=== PATIENT | female | born 1980 | race Caucasian/White ===

== ENCOUNTER 2017-12-29 22:01 | Emergency (ER) | payer OTHER, MEDICAID, SELFPAY ==
[2017-12-29 22:26] VITALS: BP 150/84; PULSE 60; RESP 15; TEMP 36.7; O2SAT 100; BMI 29.9
[2017-12-29 23:00] VITALS: BP 144/86; PULSE 64; RESP 14; O2SAT 100
--- NOTE | 2017-12-29 23:40 | ED_ITS ---
HPI - Arrhythmia/Palpitations General Chief Complaint: Arrhythmia/Palpitations Stated Complaint: STATES IRREGULAR HEART BEATS Time Seen by Provider: 12/29/17 22:07 Source: patient Mode of arrival: ambulatory Limitations: no limitations History of Present Illness HPI narrative: Otherwise healthy 37-year-old female here for evaluation of palpitations. Patient states that she has had palpitations off and on for some time now. She states she has seen her primary doctor and also a assistant farm operations manager and has worn a 24 hr Holter monitor. She states that her palpitations have never been recorded on any of these visits. She states that she was told that she had ?PVCs ?by the assistant farm operations manager. She states that her current symptoms are which she has had in the past. She describes them as her heart skipping beats. She denies any chest pain. She states that they are ?annoying? she states she is not short of breath with them. Has gotten lightheaded with them. She states that when these symptoms 1st started over a year ago it was because she was having ?fainting spells ?not having any of these spells now. Review of Systems Constitutional Denies chills, Denies fever(s), Denies lethargy and Denies weakness Cardiovascular Denies rapid heart rate, Reports irregular heart rhythm, Denies leg edema, Reports palpitations, Denies dyspnea and Denies dyspnea on exertion Respiratory Denies cough, Denies dyspnea, Denies dyspnea on exertion and Denies wheezing Gastrointestinal Gastrointestinal: Denies abdominal pain, Denies change in bowel habits, Denies diarrhea, Denies nausea and Denies vomiting Musculoskeletal Denies back pain, Denies muscle weakness, Denies numbness and Denies tingling Integumentary/Breasts Denies pruritus, Denies erythema, Denies rash and Denies wounds Neurologic Denies numbness, Denies tingling and Denies weakness Endocrine Reports palpitations Hematologic/Lymphatic Denies easy bruising Allergic/Immunologic Denies wheezing [facility] Social History Smoking Status: Never smoker Exam Initial Vital Signs Initial Vital Signs: Vital Signs Temperature 98.1 F 12/29/17 22:26 Pulse Rate 60 12/29/17 22:26 Respiratory Rate 15 12/29/17 22:26 Blood Pressure 150/84 H 12/29/17 22:26 Pulse Oximetry 100 12/29/17 22:26 Chest Chest: normal inspection of the chest Resp Effort & Inspection: normal respiratory effort, able to speak in complete sentences, no respiratory distress and no use of accessory muscles Auscultation: clear to auscultation bilaterally, no rales, no rhonchi and no wheezes Cardio Rate: bradycardic Rhythm: regular rhythm Heart Sounds: no click, no gallops, no murmurs and no rubs Pulses: normal peripheral pulses GI Inspection: non-distended Palpation: soft, no hepatosplenomegaly, No guarding, No pulsatile mass and No tender Auscultation: normal bowel sounds Skin General: no rashes or lesions noted, No jaundice and No petechiae Neuro General: alert, oriented x3, gait normal and no focal motor deficits Speech: speech normal Extrem General: full ROM, no clubbing, cyanosis or edema, no pedal edema and no calf tenderness Course Orders Ordered: ED Orders 12/29/17 22:07 EKG-12 Lead Stat Vital Signs - 8 hr 12/29/17 22:26 12/29/17 23:00 12/29/17 23:46 Temperature 98.1 F Pulse Rate 60 64 53 L Respiratory Rate 15 14 14 Blood Pressure 150/84 H 149/94 H Blood Pressure [Right Arm] 144/86 H Pulse Oximetry 100 100 100 MDM - Arrhythmia/Palpitations ECG Data Attestation: I personally reviewed and interpreted this ECG as follows: Prior ECG tracings: not available for review Interpretation: Sinus bradycardia Ventricular rate of 48 Normal axis Normal intervals Normal QTC Normal QRS No ST T wave changes MDM Narrative Medical decision making narrative: During her time here in the emergency department patient has been bradycardic in the 50s. Her heart rate does increase with exertion. She states that she has been told that her heart rate is always slow. We were able to catch her symptoms while she was on the monitor. She did have bigeminy. She was not having chest pain not having shortness of breath and not lightheaded during these symptoms here in the emergency department. She is otherwise healthy. We did discuss that bigeminy could be controlled with medications however would be a daily medication and her symptoms are sporadic. She was given a copy of her rhythm strip which showed the bigeminy. She was instructed that she needed to call her assistant farm operations manager office tomorrow to tell them about her symptoms to set up an appointment to discuss medications. She was given return precautions. She expressed understanding and agreement with plan. Discharge Plan Departure Patient Disposition: Home, Self-Care Clinical Impression: Ventricular bigeminy Discharge Date/Time: 12/29/17 23:46 Interventions: ED Discharge Assessment Last Done: 12/29/17 23:46 Instructions: Premature Ventricular Beats Activity Restrictions/Additional Instructions: Recommend that you contact your assistant farm operations manager and primary care doctor tomorrow for a follow-up and to discuss further workup and treatment. Return to the emergency department for any new symptoms, passing out, chest pain, or any other concerning symptoms.
[2017-12-29 23:46] VITALS: BP 149/94; PULSE 53; RESP 14; O2SAT 100
== END 2017-12-29 23:46 | disposition home or self-care (01) ==
PROVIDERS: Emergency Provider Emergency Medicine; PCP Family Medicine
DX: I49.9 Cardiac arrhythmia, unspecified (principal)
CPT/HCPCS: 93005; 99282; 99283

== ENCOUNTER 2022-11-12 13:00 | Emergency (ER) | payer OTHER, SELFPAY ==
[2022-11-12 13:30] VITALS: BP 144/81; PULSE 64; RESP 17; TEMP 37.2; O2SAT 99; BMI 32.0
[2022-11-12 14:15] LABS: Add Manual Diff / Slide Review NO; Basophils Absolute Auto 100 /uL (0-100); Basophils Percent Auto 1.2 % (0-2); Eosinophils Absolute Auto 300 /uL (0-450); Eosinophils Percent Auto 4.6 % (2-4); Hematocrit 39.4 % (36-46); Lymphocytes Absolute Auto 1600 /uL (1100-4500); Lymphocytes Percent Auto 26.8 % (25-40); Mean Corpuscular Hemoglobin 25.9 PG (26-34); Mean Corpuscular Volume 78.5 fL (80-100); Monocytes Absolute Auto 500 /uL (0-900); Monocytes Percent Auto 8.2 % (3-14); Neutrophils Absolute Auto 3500 /uL (1500-7000); Neutrophils Percent Auto 59.2 % (50-75); Platelet Count 171 X10^3/uL (150-400); Red Blood Cell Count 5.02 X10^6/uL (4.0-5.2); Red Cell Distribution Width 13.6 % (11.6-14.8); White Blood Cell Count 5.9 X10^3/uL (4.5-11.0)
[2022-11-12 14:20] LABS: Alanine Aminotransferase 29 IU/L (<35); Albumin 4.1 g/dL (3.5-5.0); Albumin Globulin Ratio 1.3 (1.0-2.8); Alkaline Phosphatase 52 U/L (38-126); Aspartate Aminotransferase 24 IU/L (14-36); BUN Creatinine Ratio 12.1 (6-22); Bilirubin Total 0.3 mg/dL (0.2-1.3); Blood Urea Nitrogen 8 mg/dL (7-17); Calcium 8.8 mg/dL (8.4-10.2); Carbon Dioxide 29 mmol/L (22-32); Chloride 102 mmol/L (98-107); Estimated Glomerular Filt Rate > 60 mL/min (>60); Globulin 3.1 g/dL (1.7-4.1); Glucose 91 mg/dL (70-100); HEMOLYSIS < 15 (0-50); Lipase 55 U/L (23-300); Sodium 138 mmol/L (137-145); Total Protein 7.2 g/dL (6.3-8.2)
--- NOTE | 2022-11-12 15:46 | DI.CT.S_ITS ---
PROCEDURE: CT ABDOMEN PELVIS W CON INDICATIONS: RLQ abd pain TECHNIQUE: After the administration of IV contrast, axial sections were acquired from the lung bases to the pubic symphysis. Coronal and sagittal reformats were performed. For radiation dose reduction, the following was used: automated exposure control, adjustment of mA and/or kV according to patient size. COMPARISON: None. FINDINGS: Image quality: Excellent. Lung bases: Unremarkable. Heart: No significant findings. Pacer leads are seen. ABDOMEN: Liver: Unremarkable. Gallbladder: Removed. Biliary ducts: Unremarkable. Pancreas: Unremarkable. Spleen: Unremarkable. Adrenal Glands: Unremarkable. Kidneys and Ureters: Unremarkable. Stomach and Bowel: In this patient with this given history, scrutiny is given to the appendix. No focal right lower quadrant inflammatory change can be seen. There is a moderate amount of stool seen within the colon. No pericolonic inflammatory change can be seen. No dilated loops of bowel are seen. The stomach is relatively decompressed, which limits its evaluation. Peritoneum: No abnormal intraperitoneal fluid. No free air. Ventral Wall: No hernia. Abdominal Nodes: No retroperitoneal or mesenteric adenopathy by size criteria. Vessels: Aorta and inferior vena cava are normal in size. Incidental note is made of a circumaortic left renal vein. PELVIS: Pelvic Organs: This patient is status post hysterectomy. No adnexal masses are seen. Bladder: Unremarkable. Pelvic Nodes: No enlarged lymph nodes. Miscellaneous: No inguinal hernias are seen. Bones: Focal L4-L5 and L5-S1 degenerative change can be seen. Milder degenerative changes are seen elsewhere. IMPRESSION: Normal appendix. No focal right lower quadrant inflammatory change can be seen. There is a moderate amount of stool seen within the colon. Please correlate with an underlying history of constipation. Additional findings: Pacer leads Cholecystectomy Circumaortic left renal vein Hysterectomy Focal lower lumbar spine degenerative change Dictated by: Onur Balderas M.D. on 11/12/2022 at 15:20 Approved by: Onur Balderas M.D. on 11/12/2022 at 15:22
--- NOTE | 2022-11-12 15:46 | ED.GENADULT ---
HPI - General Adult General Chief complaint: Abdominal Pain Stated complaint: back pain sent from [facility], abd pain Time Seen by Provider: 11/12/22 13:54 Source: patient and family Mode of arrival: Ambulatory Limitations: no limitations History of Present Illness HPI narrative: Patient is a 42-year-old female who is sent over from the walk-in clinic for right-sided lower back and right lower quadrant abdominal pain. She has had a hysterectomy and a cholecystectomy in the past. Her symptoms have been going on for the past 2 days. She actually started have symptoms about 5 days ago but worsened 2 days ago. Is having somewhat of a headache. No fevers. No nausea vomiting. No change in bowel habits. She did have a bowel movement yesterday. No urinary symptoms. No vaginal bleeding. No skin changes over the area. 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 She is not on anticoagulation for this. Related Data Previous Rx's Medication Instructions Recorded dicyclomine 10 mg capsule 10 mg PO TID PRN Abdominal 11/12/22 cramping #20 caps Allergies Allergy/AdvReac Type Severity Reaction Status Date / Time ibuprofen Allergy Severe Swelling Verified 11/12/22 16:24 of the Eye Review of Systems Review of Systems ROS Unobtainable: All systems reviewed & are unremarkable except as noted in HPI and below Patient History Medical History (Updated 11/12/22 @ 19:14 by Elijah Johnson DO) Pacemaker Social History Smoking Status: Never smoker Smoking Status: Never smoker alcohol intake frequency: other Substance Use Type: marijuana Exam Initial Vital Signs Initial Vital Signs: Vital Signs Temperature 99 F 11/12/22 13:30 Pulse Rate 64 11/12/22 13:30 Respiratory Rate 17 11/12/22 13:30 Blood Pressure 144/81 H 11/12/22 13:30 Pulse Oximetry 99 11/12/22 13:30 Oxygen Delivery Method Room Air 11/12/22 13:30 Const General: cooperative, comfortable and No ill appearing HENMT Head: normal to inspection and normocephalic Resp Effort & Inspection: normal respiratory effort Auscultation: clear to auscultation bilaterally Cardio Rate: regular rate GI Inspection: normal to inspection Palpation: soft, No firm, No guarding and No tender Back/Spine/Pelvis Back: No CVA tenderness Skin General: no rashes or lesions noted Neuro General: patient alert, patient awake and moves all extremities Extrem General: capillary refill normal Psych Appearance: grossly normal and well kempt Course Orders Ordered: ED Orders 11/12/22 13:54 Urine Microscopic Stat 11/12/22 14:00 Complete Blood Count AUTO DIFF Stat Comprehensive Metabolic Panel Stat Lipase Stat 11/12/22 15:46 CT abdomen pelvis w con Stat Discontinued Medications Diphenhydramine HCl (Diphenhydramine 50 Mg/Ml Vial) 25 mg IV NOW ONE Stop: 11/12/22 17:14 Last Admin: 11/12/22 17:28 Dose: 25 mg Documented By: MADELEINE Hydromorphone HCl (Hydromorphone 0.5 Mg Inj) 0.5 mg IV NOW ONE Stop: 11/12/22 16:25 Last Admin: 11/12/22 16:30 Dose: 0.5 mg Documented By: MADELEINE Sodium Chloride (Normal Saline 0.9%) 1,000 mls @ 1,000 mls/hr IV BOLUS ONE Stop: 11/12/22 18:21 Last Infusion: 11/12/22 18:29 Dose: 0 mls/hr Documented By: Admin: 11/12/22 17:29 Dose: 1,000 mls/hr Documented By: MADELEINE Metoclopramide HCl (Metoclopramide 10 Mg/2 Ml Inj) 10 mg IV NOW ONE Stop: 11/12/22 17:14 Last Admin: 11/12/22 17:29 Dose: 10 mg Documented By: MADELEINE Vital Signs Vital signs: Vital Signs - 8 hr 11/12/22 13:30 Temperature 99 F Pulse Rate 64 Respiratory Rate 17 Blood Pressure 144/81 H Pulse Oximetry 99 Oxygen Delivery Method Room Air Medical Decision Making Medical Records Medical records reviewed: Yes I reviewed the patient's medical records. Lab Data Lab results reviewed: Yes I reviewed the patient's lab results. 11/12/22 14:00 11/12/22 14:00 Labs: Lab Results 11/12/22 11/12/22 Range/Units 14:00 14:00 WBC 5.9 (4.5-11.0) X10^3/uL RBC 5.02 (4.0-5.2) X10^6/uL Hgb 13.0 (12.0-16.0) g/dL Hct 39.4 (36-46) % MCV 78.5 L (80-100) fL MCH 25.9 L (26-34) PG MCHC 33.0 (30-36) % RDW 13.6 (11.6-14.8) % Plt Count 171 (150-400) X10^3/uL Neut % (Auto) 59.2 (50-75) % Lymph % (Auto) 26.8 (25-40) % [place] % (Auto) 8.2 (3-14) % Eos % (Auto) 4.6 H (2-4) % Baso % (Auto) 1.2 (0-2) % Neut # (Auto) 3500 (1207-8684) /uL Lymph # (Auto) 1600 (5517-5621) /uL [place] # (Auto) 500 (0-900) /uL Eos # (Auto) 300 (0-450) /uL Baso # (Auto) 100 (0-100) /uL Sodium 138 (137-145) mmol/L Potassium 4.0 (3.4-5.1) mmol/L Chloride 102 (98-107) mmol/L Carbon Dioxide 29 (22-32) mmol/L BUN 8 (7-17) mg/dL Creatinine 0.66 (0.52-1.04) mg/dL Estimated GFR > 60 (>60) mL/min BUN/Creatinine Ratio 12.1 (6-22) Glucose 91 (70-100) mg/dL Calcium 8.8 (8.4-10.2) mg/dL Total Bilirubin 0.3 (0.2-1.3) mg/dL AST 24 (14-36) IU/L ALT 29 (<35) IU/L Alkaline Phosphatase 52 (38-126) U/L Total Protein 7.2 (6.3-8.2) g/dL Albumin 4.1 (3.5-5.0) g/dL Globulin 3.1 (1.7-4.1) g/dL Albumin/Globulin Ratio 1.3 (1.0-2.8) Lipase 55 (23-300) U/L Urine Dip Bedside Urine Glucose Negative Bedside Urine Bilirubin - Negative Bedside Urine Ketone - Negative Urine Specific [place] 1.010 Bedside Urine Occult Blood - Negative Bedside Urine pH 7 Bedside Urine Protein - Negative Bedside Urine Urobilinogen - Negative Bedside Urine Nitrite - Negative Bedside Urine Leukocytes - Negative Esterase Point of care testing: Urine Dip Bedside Urine Glucose Negative Bedside Urine Bilirubin - Negative Bedside Urine Ketone - Negative Urine Specific [place] 1.010 Bedside Urine Occult Blood - Negative Bedside Urine pH 7 Bedside Urine Protein - Negative Bedside Urine Urobilinogen - Negative Bedside Urine Nitrite - Negative Bedside Urine Leukocytes - Negative Esterase Imaging Data CT scan - abdomen/pelvis: Radiologist's Impression: PROCEDURE:? CT ABDOMEN PELVIS W CON ? INDICATIONS:? RLQ abd pain ? TECHNIQUE:? After the administration of IV contrast, axial sections were acquired from the lung bases to the pubic symphysis.? Coronal and sagittal reformats were performed.? For radiation dose reduction, the following was used:? automated exposure control, adjustment of mA and/or kV according to patient size. ? COMPARISON:? None. ? FINDINGS:? Image quality:? Excellent.? ? Lung bases:? Unremarkable.? ? Heart:? No significant findings.? Pacer leads are seen. ? ? ABDOMEN: Liver:? Unremarkable.? ? Gallbladder:? Removed.? ? ? Biliary ducts:? Unremarkable.? ? Pancreas:? Unremarkable.? ? Spleen:? Unremarkable.? ? Adrenal Glands:? Unremarkable.? ? Kidneys and Ureters:? Unremarkable.? ? ? Stomach and Bowel: In this patient with this given history, scrutiny is given to the appendix.? No focal right lower quadrant inflammatory change can be seen. There is a moderate amount of stool seen within the colon.? No pericolonic inflammatory change can be seen. No dilated loops of bowel are seen. The stomach is relatively decompressed, which limits its evaluation. Peritoneum:? No abnormal intraperitoneal fluid.? No free air.? ? Ventral Wall: ? No hernia.? Abdominal Nodes:? No retroperitoneal or mesenteric adenopathy by size criteria.? Vessels:? Aorta and inferior vena cava are normal in size.? Incidental note is made of a circumaortic left renal vein.? ? PELVIS: Pelvic Organs: This patient is status post hysterectomy. No adnexal masses are seen.? Bladder:? Unremarkable.? ? Pelvic Nodes: No enlarged lymph nodes.? Miscellaneous: No inguinal hernias are seen. ? ? ? Bones:? Focal L4-L5 and L5-S1 degenerative change can be seen.? Milder degenerative changes are seen elsewhere.? ? ? IMPRESSION:? ? Normal appendix.? No focal right lower quadrant inflammatory change can be seen. ? There is a moderate amount of stool seen within the colon. Please correlate with an underlying history of constipation.? Additional findings:? Pacer leads Cholecystectomy Circumaortic left renal vein Hysterectomy Focal lower lumbar spine degenerative change MDM Narrative Medical decision making narrative: CT scan does not show acute pathology. It does show a stool burden but she did have a bowel movement yesterday. I did discuss this with her that potentially this could be causing her abdominal pain. She also developed a headache. She does have a history of migraines in the past. She feels much better after the above-stated therapies. We did discuss the possibility of an abdominal migraine as well. There was no indication for antibiotics. No indication for surgical consultation. No indication for admission to the hospital. Will send home with return precautions. She expressed understanding and agreement. Discharge Plan Departure Patient Disposition: Home Clinical Impression: Abdominal pain, Headache Instructions: DI for Abdominal Pain-Adult Activity Restrictions/Additional Instructions: I do recommend that you start on a good bowel regimen to include either fiber/stool softener/laxatives. Contact your primary doctor for follow-up. I recommend a bland diet for the next couple days. Return to the emergency department for new or worsening symptoms. Prescriptions: New dicyclomine 10 mg capsule 10 mg PO TID PRN (Reason: Abdominal cramping) Qty: 20 0RF Referrals: Mary Montenegro DO [Primary Care Provider] - Stand Alone Forms: Patient Portal/API, Work Release Note
[2022-11-12] MEDS: HYDROMORPHONE 0.5 MG INJ IV (16:30)
[2022-11-12] MEDS: diphenhydrAMINE 50 MG/ML VIAL 25 MG IV (17:28)
[2022-11-12] MEDS: SODIUM CHLORIDE 0.9% 1,000 ML 1000 ML IV (17:29)
[2022-11-12] MEDS: METOCLOPRAMIDE 10 MG/2 ML INJ IV (17:29)
[2022-11-12 19:30] VITALS: BP 132/78; PULSE 71; RESP 16; TEMP 36.6; O2SAT 100
== END 2022-11-12 19:31 | disposition home or self-care (01) ==
PROVIDERS: Emergency Provider Emergency Medicine; PCP Family Medicine
DX: R10.31 Right lower quadrant pain (principal); R51.9 Headache, unspecified; M54.50 Low back pain, unspecified
CPT/HCPCS: 36415; 74177; 80053; 81003; 83690; 85025; 96361; 96374; 96375; 99284; J1170; J1200; J2765; Q9967

== ENCOUNTER → 2022-12-23 12:35 | Outpatient (CLI) | payer OTHER, MEDICAID, SELFPAY ==
--- NOTE | 2022-12-23 | DI.MG.S_ITS ---
BILATERAL DIGITAL SCREENING MAMMOGRAM 3D/2D WITH CAD: 12/23/2022 CLINICAL: Routine screening. Baseline exam. No prior exams were available for comparison. Both breasts are heterogeneously dense, which may obscure small masses (category c / 51-75% glandular tissue). Current study was also evaluated with a Computer Aided Detection (CAD) system. No significant masses, calcifications, or other findings are seen in either breast. IMPRESSION: NEGATIVE There is no mammographic evidence of malignancy. A 1 year screening mammogram is recommended. Based on the Tyrer Cuzick model (a risk assessment model) the patient's lifetime risk is 9.2% and her 10 year risk is 1.4%. According to the ACR, ACS, and NCCN guidelines, an annual breast MRI exam along with mammogram is recommended if the patient's lifetime risk is 20% or greater. This exam was interpreted at Station ID: [id number]. NOTE: For mammograms, a report in lay terms will be sent to the patient. Approximately 15% of breast malignancies will not be visualized mammographically. In the management of a palpable breast mass, a negative mammogram must not discourage biopsy of a clinically suspicious lesion. Electronically Signed By: Gui collier/nikhil:12/23/2022 13:20:23 letter sent: Normal Exam ACR BI-RADS Category 1: Negative 3341F
== END ==
PROVIDERS: PCP Physician Assistant; Referring Provider Physician Assistant; Visit Provider Physician Assistant
DX: Z12.31 Encounter for screening mammogram for malignant neoplasm of breast (principal)
CPT/HCPCS: 77063; 77067

== ENCOUNTER 2023-04-18 08:23 | Emergency (ER) | payer OTHER, SELFPAY ==
[2023-04-18 08:35] VITALS: BP 136/82; PULSE 67; RESP 16; TEMP 36.7; O2SAT 97; BMI 30.2
--- NOTE | 2023-04-18 09:29 | ED.BACK ---
HPI - Back Pain/Injury General Chief Complaint: Back Pain/Injury Stated Complaint: lower back pain T-2 Time Seen by Provider: 04/18/23 08:58 Source: patient Mode of arrival: Ambulatory History of Present Illness HPI Narrative: 42-year-old female who on Tuesday was bending over when she states that she felt 2 pops in her back and since that time has had lower back discomfort. It is radiating down to her legs. No fevers. No urinary symptoms. She states that she has been taking Tylenol. Can not take ibuprofen because of eye swelling. She has been ambulatory. It does hurt for her to bend over hand to walk. Related Data Previous Rx's Medication Instructions Recorded dicyclomine 10 mg capsule 10 mg PO TID PRN Abdominal 11/12/22 cramping #20 caps cyclobenzaprine 10 mg tablet 10 mg PO TID PRN muscle spasm #14 04/18/23 tabs meloxicam 7.5 mg tablet 7.5 mg PO BID PRN back pain #40 04/18/23 tabs Allergies Allergy/AdvReac Type Severity Reaction Status Date / Time ibuprofen Allergy Severe Swelling Verified 11/12/22 16:24 of the Eye Review of Systems Constitutional Constitutional: Reports system reviewed and no additional complaints, except as documented Genitourinary Genitourinary: Reports system reviewed and no additional complaints, except as documented Musculoskeletal Musculoskeletal: Reports system reviewed and no additional complaints, except as documented Integumentary/Breasts Skin/Breast: Reports system reviewed and no additional complaints, except as documented Neurologic Neurologic: Reports system reviewed and no additional complaints, except as documented Patient History Medical History Pacemaker Social History Smoking Status: Never smoker Smoking Status: Never smoker alcohol intake frequency: other Substance Use Type: marijuana Exam Initial Vital Signs Initial Vital Signs: Vital Signs Temperature 98.0 F 04/18/23 08:35 Pulse Rate 67 04/18/23 08:35 Respiratory Rate 16 04/18/23 08:35 Blood Pressure 136/82 04/18/23 08:35 Pulse Oximetry 97 04/18/23 08:35 Oxygen Delivery Method Room Air 04/18/23 08:35 Const General: cooperative, comfortable and No ill appearing HENMT Head: normal to inspection Back/Spine/Pelvis Other: Discomfort along the SI joints and lumbar region bilaterally. No thoracic muscle tenderness. Neuro General: patient alert, patient awake and moves all extremities Course Orders Ordered: Discontinued Medications Hydromorphone HCl (Hydromorphone 1 Mg Inj) 1 mg IM NOW ONE Stop: 04/18/23 09:36 Last Admin: 04/18/23 10:40 Dose: 1 mg Documented By: BRANDO Vital Signs Vital signs: Vital Signs - 8 hr 04/18/23 08:35 04/18/23 10:51 04/18/23 10:54 Temperature 98.0 F Pulse Rate 67 60 60 Respiratory Rate 16 14 14 Blood Pressure 136/82 128/64 Pulse Oximetry 97 97 97 Oxygen Delivery Method Room Air Room Air Room Air MDM - Back Pain/Injury MDM Narrative Medical decision making narrative: Based on her history and physical today I have low suspicion for cauda equina. Low suspicion for fracture. I have a very high suspicion this is muscular in origin. No indication for radiologic studies. Will try symptomatic treatment. She was given return precautions and follow-up instructions. She expressed understanding and agreement. Discharge Plan Departure Patient Disposition: Home Clinical Impression: Strain of lumbar region Instructions: DI for Back Strain or Sprain Activity Restrictions/Additional Instructions: I do recommend that you continue with conservative measures such as heat/ice and light stretching. You can continue with the Tylenol. Take the medications to were prescribed today as directed. Contact your primary doctor for follow-up. Prescriptions: New meloxicam 7.5 mg tablet 7.5 mg PO BID PRN (Reason: back pain) Qty: 40 0RF cyclobenzaprine 10 mg tablet 10 mg PO TID PRN (Reason: muscle spasm) Qty: 14 0RF No Action dicyclomine 10 mg capsule 10 mg PO TID PRN (Reason: Abdominal cramping) Qty: 20 0RF Referrals: Yenni Britton PA-C [Primary Care Provider] - Stand Alone Forms: Patient Portal/API, Work Release Note
[2023-04-18] MEDS: HYDROMORPHONE 1 MG INJ IM (10:40)
[2023-04-18 10:51] VITALS: PULSE 60; RESP 14; O2SAT 97
[2023-04-18 10:54] VITALS: BP 128/64; PULSE 60; RESP 14; O2SAT 97
== END 2023-04-18 10:59 | disposition home or self-care (01) ==
PROVIDERS: Emergency Provider Emergency Medicine; PCP Physician Assistant
DX: S39.012A Strain of muscle, fascia and tendon of lower back, initial encounter (principal)
CPT/HCPCS: 96372; 99283; J1170

== ENCOUNTER 2023-12-28 20:58 | Emergency (ER) | payer OTHER, MEDICAID, SELFPAY ==
[2023-12-28] VITALS (11 sets, daily range): BP systolic 115–174; BP diastolic 62–82; PULSE 60–71; RESP 14–18; TEMP 36.6–36.8; O2SAT 94–99; BMI 31.8
--- NOTE | 2023-12-28 22:13 | ED.HA ---
HPI - Headache General Chief Complaint: Headache Stated Complaint: headache, eye pain, just not feeling good Time Seen by Provider: 12/28/23 21:00 Mode of arrival: Ambulatory History of Present Illness HPI Narrative: 43-year-old female with history of meningioma, currently followed by Neurosurgery (under routine surveillance for now) presents by private vehicle from home for 1 week of frontal headache. Headache is throbbing and behind the eyes, comes and goes, better with closing of her eyes. No medications taken at home for symptoms. States that she had a migraine many years prior but this feels somewhat different. Denies use of blood thinners. Denies numbness, weakness, other complaints at this time. Related Data Previous Rx's Medication Instructions Recorded dicyclomine 10 mg capsule 10 mg PO TID PRN Abdominal 11/12/22 cramping #20 caps cyclobenzaprine 10 mg tablet 10 mg PO TID PRN muscle spasm #14 04/18/23 tabs meloxicam 7.5 mg tablet 7.5 mg PO BID PRN back pain #40 04/18/23 tabs Allergies Allergy/AdvReac Type Severity Reaction Status Date / Time ibuprofen Allergy Severe Swelling Verified 12/28/23 21:07 of the Eye Review of Systems Review of Systems Narrative: See HPI Patient History Medical History Pacemaker Social History Smoking Status: Never smoker Smoking Status: Never smoker alcohol intake frequency: holidays/special occasions only Substance Use Type: marijuana Exam Initial Vital Signs Initial Vital Signs: Vital Signs Temperature 97.9 F 12/28/23 21:00 Pulse Rate 64 12/28/23 21:00 Respiratory Rate 14 12/28/23 21:00 Blood Pressure 174/82 H 12/28/23 21:00 Pulse Oximetry 98 12/28/23 21:00 Oxygen Delivery Method Room Air 12/28/23 21:00 Const: Awake, alert, no acute distress, nontoxic appearing Cardiac: regular rate, regular rhythm RESP: unlabored, clear bilaterally, no wheezing GI: Soft, nontender, nondistended, no rebound, no guarding MSK: Atraumatic, full range of motion, pulses equal Skin: Warm, Dry, intact, no rashes Neuro: AO x3, CN II-XII grossly intact, moves all extremities Course Orders Ordered: Discontinued Medications Diphenhydramine HCl (Diphenhydramine 50 Mg/Ml Vial) 25 mg IV NOW ONE Stop: 12/28/23 22:15 Last Admin: 12/28/23 22:39 Dose: 25 mg Documented By: Acetaminophen (Ofirmev) 1,000 mg in 100 mls @ 400 mls/hr IV NOW ONE Stop: 12/28/23 22:28 Last Infusion: 12/28/23 22:59 Dose: Infused Documented By: Admin: 12/28/23 22:39 Dose: 400 mls/hr Documented By: Sodium Chloride (Normal Saline 0.9%) 1,000 mls @ 1,000 mls/hr IV BOLUS ONE Stop: 12/28/23 23:13 Last Infusion: 12/28/23 23:31 Dose: Infused Documented By: Admin: 12/28/23 22:31 Dose: 1,000 mls/hr Documented By: Metoclopramide HCl (Metoclopramide 10 Mg/2 Ml Inj) 10 mg IV NOW ONE Stop: 12/28/23 22:15 Last Admin: 12/28/23 22:39 Dose: 10 mg Documented By: Vital Signs Vital signs: Vital Signs - 8 hr 12/28/23 21:00 12/28/23 21:04 12/28/23 21:05 Temperature 97.9 F Pulse Rate 64 Respiratory Rate 14 Blood Pressure 174/82 H 174/82 H Pulse Oximetry 98 94 Oxygen Delivery Method Room Air 12/28/23 21:05 12/28/23 21:30 12/28/23 22:00 Temperature Pulse Rate 68 66 61 Respiratory Rate Blood Pressure Pulse Oximetry 98 98 97 Oxygen Delivery Method 12/28/23 22:27 12/28/23 22:27 12/28/23 22:29 Temperature Pulse Rate 71 63 Respiratory Rate Blood Pressure 161/72 H Pulse Oximetry 98 99 Oxygen Delivery Method 12/28/23 22:29 12/28/23 22:30 12/28/23 22:30 Temperature Pulse Rate 61 Respiratory Rate Blood Pressure 134/66 132/62 Pulse Oximetry 98 Oxygen Delivery Method 12/28/23 23:00 12/28/23 23:00 Temperature Pulse Rate 60 Respiratory Rate 18 Blood Pressure 121/63 Pulse Oximetry 97 Oxygen Delivery Method MDM - Headache Differential Diagnosis Differential diagnosis: Likely migraine, tension headache and subarachnoid hemorrhage Imaging Data CT scan - head: Radiologist's Impression: PROCEDURE: CT HEAD/BRAIN WO CON INDICATIONS: CHILD X 7 DAYS, HX MENINGIOMA TECHNIQUE: Noncontrast 4.5 mm thick angled axial sections acquired from the foramen magnum to the vertex, with coronal and sagittal reformats. For radiation dose reduction, the following was used: automated exposure control, adjustment of mA and/or kV according to patient size. COMPARISON: Merged With [facility], MR, MR BRAIN WITH/WITHOUT CONTRAST, 02/17/2023, 16:35. FINDINGS: Image quality: Diagnostic. CSF spaces: Basal cisterns are patent. No extra-axial fluid collections. Ventricles are normal in size and shape. Brain: No midline shift. No intracranial masses or hemorrhage. Bacon-white matter interface is normal. Skull and face: Calvarium and visualized facial bones are intact, without suspicious lesions. Sinuses: Visualized sinuses and mastoids are clear. IMPRESSION: No acute intracranial pathology. Dictated by: Rustam Roberts M.D. on 12/28/2023 at 22:26 Approved by: Rustam Roberts M.D. on 12/28/2023 at 22:27 [facility] Narrative Medical decision making narrative: Well-appearing patient with 1 week of headache. No [id number] therapies tried prior to ED presentation. Patient was neurologically intact, ambulatory without difficulty. No focal deficits or physical exam abnormalities. Since this is a new headache pattern for the patient, especially with given history of meningioma we will order CT scan of the brain. Headache cocktail ordered. Patient requested no sedating medications be administered as she has to drive home, however she states that Benadryl is okay. She states that she regularly takes Benadryl for nighttime hives. Patient reports allergy to ibuprofen, stating that it makes her eyes swell, so Toradol we will not be ordered, however patient does have meloxicam listed on her medical history. CT negative for acute findings. Patient reports improvement of headache after migraine cocktail. Patient counseled to take Tylenol at home for headache and to get plenty of fluids. PCP follow up advised Discharge Plan Departure Patient Disposition: Home Clinical Impression: Headache Instructions: DI for Headache Activity Restrictions/Additional Instructions: You may take up to 1000 mg of Tylenol every 6 hours for pain. Make sure to get plenty of rest and drink plenty of fluids. Follow up with your primary care doctor Prescriptions: No Action meloxicam 7.5 mg tablet 7.5 mg PO BID PRN (Reason: back pain) Qty: 40 0RF cyclobenzaprine 10 mg tablet 10 mg PO TID PRN (Reason: muscle spasm) Qty: 14 0RF dicyclomine 10 mg capsule 10 mg PO TID PRN (Reason: Abdominal cramping) Qty: 20 0RF Referrals: Yenni Britton PA-C [Primary Care Provider] - Stand Alone Forms: Patient Portal/API
[2023-12-28] MEDS: SODIUM CHLORIDE 0.9% 1,000 ML 1000 ML IV (22:31)
[2023-12-28] MEDS: METOCLOPRAMIDE 10 MG/2 ML INJ IV (22:39)
[2023-12-28] MEDS: ACETAMINOPHEN IV 1,000 MG/100 ML VIAL 400 MG IV (22:39)
[2023-12-28] MEDS: diphenhydrAMINE 50 MG/ML VIAL 25 MG IV (22:39)
== END 2023-12-28 23:42 | disposition home or self-care (01) ==
PROVIDERS: Emergency Provider Emergency Medicine; PCP Physician Assistant
DX: R51.9 Headache, unspecified (principal)
CPT/HCPCS: 36415; 70450; 96365; 96374; 96375; 99284; J0136; J1200; J2765